=== PATIENT | female | born 1940 | race Caucasian/White ===

== ENCOUNTER 2019-10-29 11:05 | Emergency (ER) | payer MEDICARE, OTHER ==
[~2019-10-29] VITALS: Ht 160 cm; Wt 50.9 kg
[~2019-10-29 11:05] MED LIST: ASPI-1 PO; CITA20TA26 PO; HYDR-3973 PO; LEVO137T2 PO; MULT-1120 PO; ONQPUMP ADDCANAL
[2019-10-29 11:41] LABS: BASOPHILS % (AUTO) 0.8 % (0-1); EOSINOPHILS # (AUTO) 0.2 X10'3 (0-0.9); EOSINOPHILS % (AUTO) 3.4 % (0-6); HEMATOCRIT 35.2 % (35.0-45.0); HEMOGLOBIN 11.5 g/dl (12.0-16.0); LYMPHOCYTES # (AUTO) 0.8 X10'3 (1.1-4.8); LYMPHOCYTES % (AUTO) 18.8 % (21-51); MEAN CORPUSCULAR HGB CONC 32.6 g/dL (33.0-36.5); MEAN CORPUSCULAR VOLUME 95.1 FL (78-98); MEAN PLATELET VOLUME 7.7 FL (7.4-10.4); MONOCYTES # (AUTO) 0.3 X10'3 (0-0.9); MONOCYTES % (AUTO) 6.1 % (2-12); NEUTROPHILS # (AUTO) 3.2 X10'3 (1.8-7.7); NEUTROPHILS % (AUTO) 70.9 % (42-75); PLATELET COUNT 192 X10'3 (140-440); WHITE BLOOD COUNT 4.5 X10'3 (4.5-11.0)
[2019-10-29 11:56] LABS: ALANINE AMINOTRANSFERASE 12 U/L (12-78); ALBUMIN 3.4 G/DL (3.4-5.0); ALBUMIN/GLOBULIN RATIO 0.9 (1.1-1.5); ALKALINE PHOSPHATASE 176 IU/L (46-116); ANION GAP 12 (8-16); ASPARTATE AMINO TRANSFERASE 21 U/L (10-37); BILIRUBIN,TOTAL 0.8 MG/DL (0.1-1.0); BLOOD UREA NITROGEN 10 MG/DL (7-18); BUN/CREATININE RATIO 8.5 (6.6-38.0); CALCIUM 8.5 MG/DL (8.5-10.1); CHLORIDE 99 MMOL/L (99-107); CREATININE 1.17 MG/DL (0.40-0.90); GLUCOSE 97 MG/DL (70-104); POTASSIUM 4.4 MMOL/L (3.5-5.1); SODIUM 136 MMOL/L (135-145); TOTAL CARBON DIOXIDE 25.5 MMOL/L (24-32); TOTAL PROTEIN 7.3 G/DL (6.4-8.2); eGFR 45 ML/MIN
[2019-10-29 12:24] LABS: D-DIMER 5.81 MG/L FEU (0-0.50)
--- NOTE | 2019-10-29 12:33 | NUR ---
PHYTOPATHOLOGIST AT BEDSIDE.
[2019-10-29] MEDS ORDERED: enoxaparin 100mg/ml syringe SUBCUT ONE (12:35)
[2019-10-29] MEDS ORDERED: iohexol 350MG/ML 100ml bottle IV ONE (12:55)
[2019-10-29 14:36] VITALS: BP 139/62
== END 2019-10-29 14:39 | disposition home or self-care (01) ==
LOC: ER 11:06
DX: T84.84XA Pain due to internal orthopedic prosthetic devices, implants and grafts, initial encounter (principal); R22.41 Localized swelling, mass and lump, right lower limb; M25.561 Pain in right knee; E03.9 Hypothyroidism, unspecified; Z98.890 Other specified postprocedural states; Z79.82 Long term (current) use of aspirin; Z79.2 Long term (current) use of antibiotics; Z79.899 Other long term (current) drug therapy; X58.XXXA Exposure to other specified factors, initial encounter
CPT/HCPCS: 36415; 71045; 71275; 80053; 83880; 84484; 85025; 85379; 93005; 93971; 96372; 99285; Q9967; J1650

== ENCOUNTER 2020-02-17 06:09 | Day surgery (SDC) | payer MEDICARE, OTHER ==
[~2020-02-17] VITALS: Ht 160 cm; Wt 81.6 kg
[2020-02-17] VITALS (9 sets, daily range): BP systolic 116–142; BP diastolic 63–75
[~2020-02-17 06:09] MED LIST changes: -ASPI-1 PO; -ONQPUMP ADDCANAL; +famotidine 20mg tablet PO ONE; +ringers solution, lacted 1,000 ML IV SCH
[2020-02-17] MEDS ORDERED: ceFAZolin 2gm in dextrose, iso 50 ML IV ONE (06:25)
[2020-02-17] MEDS ORDERED: tranexamic acid inj. 800 MG in normal saline 100ml IV soln 100 ML IV ONE ×4 (06:25)
[2020-02-17] MEDS ORDERED: ringers solution, lacted 1,000 ML IV SCH (07:34)
[2020-02-17] MEDS ORDERED: morphine 4 MG/ML inj SYRINge IV PRN (07:35)
[2020-02-17] MEDS ORDERED: morphine 2 MG/ML inj. syringe IV PRN (07:35)
[2020-02-17] MEDS ORDERED: ondansetron/PF 4mg/2ml inj IV PRN (07:35)
[2020-02-17] MEDS ORDERED: proCHLORperazine 10 MG/2 ml inj IV PRN (07:35)
[2020-02-17] MEDS ORDERED: meperidine/PF 25mg/ml syringe IV PRN ×3 (07:35)
[2020-02-17] MEDS ORDERED: BUPIVAcaine/PF 2.5 mg/ml (0.25%) 30ml vial ONE (07:50)
[2020-02-17] MEDS ORDERED: fentaNYL/PF 50MCG/1 ML 2ML syringe ONE (07:51)
[2020-02-17] MEDS ORDERED: propofol inj 20 ML IV ONE (07:51)
[2020-02-17] MEDS ORDERED: midazolam 2 mg/2 ml injection ONE (07:51)
--- NOTE | 2020-02-17 08:33 | NUR ---
Received from OR via [facility], accompanied by Anesthesiologist DR MCKEON and report given by Anesthesiologist. PT DROWSY, DENIES PAIN, RIGHT KNEE W/DAVID WRAP COVERING INCISION CDI. Addendum: 02/17/20 at 0854 by Milka Aleman RN Amended: Links added.
[2020-02-17] MEDS ORDERED: HYDROcodone/acetaminophen 10/325mg tab PO PRN (08:50)
--- NOTE | 2020-02-17 10:13 | NUR ---
PT PAIN IMPROVED, PT UP AND AMBULATED SAFELY, IS TOLERATING FOOD AND LIQUIDS, D/C INSTRUCTIONS GIVEN AND GONE OVER W/PT WHO VERBALIZED UNDERSTANDING. PT D/CD TO HOME VIA W/C TO PRIVATE VEHICLE W/O INCIDENT. Addendum: 02/17/20 at 1039 by Milka Aleman RN Amended: Links added.
== END 2020-02-17 10:13 | disposition home or self-care (01) ==
LOC: PRE-OP 06:09
PROVIDERS: ATTEND Orthopaedic Surgery
DX: T81.89XA Other complications of procedures, not elsewhere classified, initial encounter (principal); F32.9 Major depressive disorder, single episode, unspecified; E03.9 Hypothyroidism, unspecified; Z90.710 Acquired absence of both cervix and uterus; Z98.890 Other specified postprocedural states; Z79.899 Other long term (current) drug therapy; Z90.49 Acquired absence of other specified parts of digestive tract; Z96.652 Presence of left artificial knee joint; Z87.891 Personal history of nicotine dependence; Z98.41 Cataract extraction status, right eye; Z98.42 Cataract extraction status, left eye; Z96.611 Presence of right artificial shoulder joint; Z96.612 Presence of left artificial shoulder joint; Z82.49 Family history of ischemic heart disease and other diseases of the circulatory system; Y83.8 Other surgical procedures as the cause of abnormal reaction of the patient, or of later complication, without mention of misadventure at the time of the procedure; Y92.89 Other specified places as the place of occurrence of the external cause
CPT/HCPCS: 13160; 82948; A6222; J2250; J2704; J3010; J3490; J7030; J7120; A4215; A4618; A6449; A7000

== ENCOUNTER 2023-06-14 10:03 | Emergency (ER) | payer MEDICARE, OTHER ==
[~2023-06-14] VITALS: Ht 157.5 cm; Wt 94.1 kg
[~2023-06-14 10:03] MED LIST changes: -CITA20TA26 PO; +LOP25T PO; -famotidine 20mg tablet PO ONE; -ringers solution, lacted 1,000 ML IV SCH
[2023-06-14 14:10] VITALS: BP 179/88; PULSE 79; RESP 12; TEMP 98.7; O2SAT 96
--- NOTE | 2023-06-14 17:20 | NUR ---
PT WAS SENT TO ER BY HER PHYSICIAN STATING SHE WAS TO BE DIRECT ADMITTED. NO PHYSICIAN SPOKE WITH HER PROVIDER. PER REGISTRATION. PT LEFT THE ER LOBBY AT THE DIRECTION OF HER PROVIDER WHO WILL DIRECT ADMIT HER TOMORROW. Addendum: 06/14/23 at 1722 by JM MSE WAS DONE BY ZELDA LANDRY PA-C
== END 2023-06-14 17:10 | disposition left against medical advice (07) ==
LOC: ER 10:03
DX: M25.562 Pain in left knee (principal); Z53.21 Procedure and treatment not carried out due to patient leaving prior to being seen by health care provider
CPT/HCPCS: 99281

== ENCOUNTER 2023-06-16 12:34 | Outpatient (CLI) | payer MEDICARE | END 2023-06-16 23:59 | disposition home or self-care (01) | LOC: RAD 12:34 | PROVIDERS: ATTEND Orthopaedic Surgery | DX: S82.142A Displaced bicondylar fracture of left tibia, initial encounter for closed fracture (principal); S83.412A Sprain of medial collateral ligament of left knee, initial encounter; S83.242A Other tear of medial meniscus, current injury, left knee, initial encounter; M25.462 Effusion, left knee; M54.10 Radiculopathy, site unspecified; M25.562 Pain in left knee; M54.42 Lumbago with sciatica, left side; R60.9 Edema, unspecified; Z96.642 Presence of left artificial hip joint; X58.XXXA Exposure to other specified factors, initial encounter; Y93.89 Activity, other specified; Y92.89 Other specified places as the place of occurrence of the external cause; Y99.8 Other external cause status | CPT/HCPCS: 72148; 73721 ==

== ENCOUNTER 2024-04-10 14:11 | Outpatient (CLI) | payer MEDICARE ==
[~2024-04-10 14:11] MED LIST changes: +MELA1TAB28 PO; +PANT-47 PO; +VITD400T PO
== END 2024-04-10 23:59 | disposition home or self-care (01) ==
LOC: MRI02 14:11
PROVIDERS: ATTEND Physical Medicine & Rehabilitation
DX: M51.36 Other intervertebral disc degeneration, lumbar region (principal); M47.897 Other spondylosis, lumbosacral region; M47.816 Spondylosis without myelopathy or radiculopathy, lumbar region; M54.59 Other low back pain
CPT/HCPCS: 72148